=== PATIENT | male | born 1975 | race African-American/Black ===

== ENCOUNTER 2021-04-27 14:28 | Inpatient (IN) ==
[2021-04-27] MEDS ORDERED: SODIUM CHLORIDE 0.9% 1,000 ML IV STA (14:53)
[2021-04-27 15:11] LABS: Basophils % 0.2 % (0.0-0.8); Eosinophils % 0.3 % (0.00-10.9); Hematocrit 53.7 VOL% (42.0-52.0); Hemoglobin 17.6 GM/DL (14.0-18.0); Immature Granulocytes % 0.4 %; Immature Granulocytes Absolute 0.05 #; Lymphocytes # 1.8 10*3/uL (1.4-4.0); Lymphocytes % 14.7 % (21.2-54.2); Mean Corpuscular HGB Conc 32.8 GM/DL (32-36); Mean Corpuscular Volume 90.4 FL (87-102); Monocytes % 5.1 % (1.7-12.7); Neutrophils % 79.3 % (38.7-73.9); Platelet Count 523 T/CUMM (130-400); Red Blood Count 5.94 MC/CUMM (3.8-5.5); Red Cell Distribution Width 13.2 % (9.3-17.3); White Blood Count 12.2 T/CUMM (4-12)
[2021-04-27 15:36] LABS: Alanine Aminotransferase 35 U/L (16-61); Alkaline Phosphatase 156 U/L (45-117); Aspartate Amino Transferase 25 U/L (0-37); Blood Urea Nitrogen 12 MG/DL (7-18); Calcium 10.8 MG/DL (8.5-10.1); Carbon Dioxide 25 MMOL/L (21-32); Estimated Glom Filtration Rate 84 ML/MIN; Glucose 173 MG/DL (74-106); Sodium 136 MMOL/L (136-145); Total Protein 8.8 G/DL (6.4-8.2)
[2021-04-27 15:38] LABS: Potassium 4.8 MMOL/L (3.5-5.1)
[2021-04-27] MEDS ORDERED: HYDROmorphone 1 MG/1 ML SYRINGE IV STA ×2 (17:07→19:09)
[2021-04-27] MEDS ORDERED: ONDANSETRON 4 MG/2 ML VIAL IV ONE (17:07)
[2021-04-27] MEDS ORDERED: PIPERACILLIN/TAZOBACTAM 3,375 MG in SODIUM CHLORIDE 0.9% 100 ML IV STA (21:37)
[2021-04-27] MEDS ORDERED: ERTAPENEM 1,000 MG in SODIUM CHLORIDE 0.9% 100 ML IV ONE (21:53)
[2021-04-27] MEDS ORDERED: LACTATED RINGERS 2,000 ML IV ONE (21:56)
[2021-04-27] MEDS ORDERED: fentaNYL 100 MCG/2 ML VIAL ONE (22:27)
[2021-04-27] MEDS ORDERED: propofoL 200 MG/20 ML VIAL IV ONE (22:27)
[2021-04-27] MEDS ORDERED: LIDOCAINE 2% 5 ML VIAL ONE (22:49)
[2021-04-27] MEDS ORDERED: PHENYLEPHRINE 1 MG/10 ML SYRINGE IV ONE (22:49)
[2021-04-27] MEDS ORDERED: SUCCINYLCHOLINE 200 MG/10 ML VIAL ONE (23:11)
[2021-04-27] MEDS ORDERED: ROCURONIUM 50 MG/5 ML VIAL IV ONE (23:11)
[2021-04-27] MEDS ORDERED: ACETAMINOPHEN INJ 1,000 MG/100 ML VIAL IV ONE (23:11)
[2021-04-27] MEDS ORDERED: SEVOFLURANE 1 UNIT/15 MINUTE INH ONE (23:11)
[2021-04-27] MEDS ORDERED: ONDANSETRON 4 MG/2 ML VIAL ONE (23:12)
[2021-04-27] MEDS ORDERED: GLYCOPYRROLATE 0.4 MG/2 ML VIAL ONE (23:26)
[2021-04-27] MEDS ORDERED: NEOSTIGMINE 10 MG/10 ML VIAL ONE (23:27)
[2021-04-27] MEDS ORDERED: ACETAMINOPHEN 325 MG TABLET PO PRN (23:51)
[2021-04-28] MEDS ORDERED: ONDANSETRON 4 MG/2 ML VIAL IV PRN (00:02)
[2021-04-28] MEDS: HYDROmorphone 1 MG/1 ML SYRINGE IV PRN ×9 (00:03→21:56)
[2021-04-28] MEDS: ONDANSETRON 4 MG/2 ML VIAL IV PRN ×3 (03:35→17:40)
[2021-04-28] MEDS: LACTATED RINGERS 1,000 ML IV SCH ×4 (06:05→21:52)
[2021-04-28] MEDS: PIPERACILLIN/TAZOBACTAM 3,375 MG in SODIUM CHLORIDE 0.9% 100 ML IV SCH ×3 (06:05→23:05)
[2021-04-28 07:57] LABS: Basophils # 0.1 10*3/uL (0.0-0.2); Basophils % 0.5 % (0.0-0.8); Eosinophils % 0.1 % (0.00-10.9); Hematocrit 50.5 VOL% (42.0-52.0); Hemoglobin 16.5 GM/DL (14.0-18.0); Immature Granulocytes % 0.5 %; Immature Granulocytes Absolute 0.05 #; Lymphocytes # 0.4 10*3/uL (1.4-4.0); Lymphocytes % 3.9 % (21.2-54.2); Mean Corpuscular HGB Conc 32.7 GM/DL (32-36); Mean Platelet Volume 9.8 FL (9.6-12.0); Monocytes % 10.1 % (1.7-12.7); Neutrophils % 84.9 % (38.7-73.9); Platelet Count 420 T/CUMM (130-400); Red Blood Count 5.61 MC/CUMM (3.8-5.5); Red Cell Distribution Width 13.4 % (9.3-17.3); White Blood Count 10.9 T/CUMM (4-12)
[2021-04-28 08:17] LABS: Calcium 8.8 MG/DL (8.5-10.1); Osmolality,Calculated 281.7 MOS/KG (273-304)
[2021-04-28 08:24] LABS: Band Neutrophils 9 % (0-10); Hypochromia 1+; Lymphocytes 8 % (20-55); Microcytosis Slight; Segmented Neutrophils 71 % (50-85); Total Cells Counted 100
[2021-04-28] MEDS ORDERED: PANTOPRAZOLE 40 MG VIAL IV ONE (08:42)
[2021-04-28] MEDS ORDERED: PANTOPRAZOLE 40 MG TABLET PO SCH (09:00)
[2021-04-28] MEDS: PANTOPRAZOLE 40 MG VIAL IV SCH (10:50)
[2021-04-28] MEDS ORDERED: LACTATED RINGERS 1,000 ML IV ONE (12:00)
[2021-04-28] MEDS ORDERED: HYDROCORTISONE 1% OINT 28.35 GM TUBE TOP PRN (13:06)
[2021-04-28] MEDS: SIMVASTATIN 20 MG TABLET PO SCH (21:56)
[2021-04-28] MEDS: NORTRIPTYLINE 25 MG CAPSULE PO SCH (21:56)
[2021-04-29] MEDS: HYDROmorphone 1 MG/1 ML SYRINGE IV PRN ×5 (01:33→21:22)
[2021-04-29] MEDS: PIPERACILLIN/TAZOBACTAM 3,375 MG in SODIUM CHLORIDE 0.9% 100 ML IV SCH ×3 (06:26→22:45)
[2021-04-29 08:22] LABS: Basophils % 0.4 % (0.0-0.8); Eosinophils # 0.1 10*3/uL (0.0-0.87); Eosinophils % 1.1 % (0.00-10.9); Hematocrit 49.1 VOL% (42.0-52.0); Hemoglobin 15.4 GM/DL (14.0-18.0); Immature Granulocytes % 0.2 %; Immature Granulocytes Absolute 0.01 #; Lymphocytes # 1.2 10*3/uL (1.4-4.0); Lymphocytes % 22.6 % (21.2-54.2); Mean Corpuscular HGB Conc 31.4 GM/DL (32-36); Mean Corpuscular Volume 93.9 FL (87-102); Mean Platelet Volume 10.5 FL (9.6-12.0); Monocytes % 11.8 % (1.7-12.7); Neutrophils % 63.9 % (38.7-73.9); Red Blood Count 5.23 MC/CUMM (3.8-5.5); Red Cell Distribution Width 13.5 % (9.3-17.3)
[2021-04-29 08:24] LABS: Platelet Count 265 T/CUMM (130-400); White Blood Count 5.3 T/CUMM (4-12)
[2021-04-29 08:40] LABS: Calcium 8.5 MG/DL (8.5-10.1); Osmolality,Calculated 280.7 MOS/KG (273-304); Potassium 4.8 MMOL/L (3.5-5.1)
[2021-04-29] MEDS: CICLOPIROX 8% TOP SCH (08:54)
[2021-04-29 08:57] LABS: Band Neutrophils 7 % (0-10); Eosinophils 2 % (0-10); Hypochromia 1+; Lymphocytes 20 % (20-55); Microcytosis 1+; Segmented Neutrophils 61 % (50-85); Total Cells Counted 100
[2021-04-29] MEDS: PANTOPRAZOLE 40 MG VIAL IV SCH (10:40)
[2021-04-29] MEDS: LOSARTAN 50 MG TABLET PO SCH (10:46)
[2021-04-29] MEDS: amLODIPine 10 MG TABLET PO SCH (10:46)
[2021-04-29] MEDS: hydroCHLOROthiazide 25 MG TABLET PO SCH (10:46)
[2021-04-29] MEDS: LACTATED RINGERS 1,000 ML IV SCH ×2 (13:17→19:59)
[2021-04-29] MEDS: SIMVASTATIN 20 MG TABLET PO SCH (21:21)
[2021-04-29] MEDS: NORTRIPTYLINE 25 MG CAPSULE PO SCH (21:21)
[2021-04-30] MEDS: HYDROmorphone 1 MG/1 ML SYRINGE IV PRN ×6 (01:16→22:30)
[2021-04-30] MEDS: PIPERACILLIN/TAZOBACTAM 3,375 MG in SODIUM CHLORIDE 0.9% 100 ML IV SCH ×3 (06:02→22:29)
[2021-04-30] MEDS: LOSARTAN 50 MG TABLET PO SCH (09:45)
[2021-04-30] MEDS: LACTATED RINGERS 1,000 ML IV SCH ×3 (09:45→22:24)
[2021-04-30] MEDS: amLODIPine 10 MG TABLET PO SCH (09:45)
[2021-04-30] MEDS: PANTOPRAZOLE 40 MG VIAL IV SCH (09:46)
[2021-04-30] MEDS: hydroCHLOROthiazide 25 MG TABLET PO SCH (09:46)
[2021-04-30] MEDS: CICLOPIROX 8% TOP SCH (11:34)
[2021-04-30] MEDS: ENOXAPARIN 40 MG/0.4 ML SYRINGE SUBCUT SCH (15:40)
[2021-04-30] MEDS: NORTRIPTYLINE 25 MG CAPSULE PO SCH (20:50)
[2021-04-30] MEDS: SIMVASTATIN 20 MG TABLET PO SCH (20:50)
[2021-05-01] MEDS: HYDROmorphone 1 MG/1 ML SYRINGE IV PRN ×4 (02:44→21:04)
[2021-05-01] MEDS: LACTATED RINGERS 1,000 ML IV SCH ×3 (04:00→21:12)
[2021-05-01] MEDS: PIPERACILLIN/TAZOBACTAM 3,375 MG in SODIUM CHLORIDE 0.9% 100 ML IV SCH (06:32)
[2021-05-01] MEDS: ENOXAPARIN 40 MG/0.4 ML SYRINGE SUBCUT SCH (09:01)
[2021-05-01] MEDS: amLODIPine 10 MG TABLET PO SCH (09:01)
[2021-05-01] MEDS: hydroCHLOROthiazide 25 MG TABLET PO SCH (09:02)
[2021-05-01] MEDS: PANTOPRAZOLE 40 MG VIAL IV SCH (09:02)
[2021-05-01] MEDS: LOSARTAN 50 MG TABLET PO SCH (09:02)
[2021-05-01 09:19] LABS: Basophils % 0.3 % (0.0-0.8); Eosinophils # 0.2 10*3/uL (0.0-0.87); Eosinophils % 2.7 % (0.00-10.9); Hematocrit 43.8 VOL% (42.0-52.0); Hemoglobin 14.4 GM/DL (14.0-18.0); Immature Granulocytes % 0.3 %; Immature Granulocytes Absolute 0.02 #; Lymphocytes # 1.4 10*3/uL (1.4-4.0); Lymphocytes % 19.3 % (21.2-54.2); Mean Corpuscular HGB Conc 32.9 GM/DL (32-36); Mean Corpuscular Volume 91.4 FL (87-102); Monocytes % 9.6 % (1.7-12.7); Neutrophils % 67.8 % (38.7-73.9); Platelet Count 403 T/CUMM (130-400); Red Blood Count 4.79 MC/CUMM (3.8-5.5); Red Cell Distribution Width 13.2 % (9.3-17.3); White Blood Count 7.1 T/CUMM (4-12)
[2021-05-01 09:39] LABS: Calcium 9.5 MG/DL (8.5-10.1); Osmolality,Calculated 269.2 MOS/KG (273-304)
[2021-05-01] MEDS: CICLOPIROX 8% TOP SCH (10:45)
[2021-05-01] MEDS: NORTRIPTYLINE 25 MG CAPSULE PO SCH (21:03)
[2021-05-01] MEDS: SIMVASTATIN 20 MG TABLET PO SCH (21:04)
[2021-05-02] MEDS: LACTATED RINGERS 1,000 ML IV SCH ×2 (04:10→12:00)
[2021-05-02] MEDS: amLODIPine 10 MG TABLET PO SCH (08:12)
[2021-05-02] MEDS: ENOXAPARIN 40 MG/0.4 ML SYRINGE SUBCUT SCH (08:12)
[2021-05-02] MEDS: LOSARTAN 50 MG TABLET PO SCH (08:13)
[2021-05-02] MEDS: hydroCHLOROthiazide 25 MG TABLET PO SCH (08:13)
[2021-05-02] MEDS: PANTOPRAZOLE 40 MG VIAL IV SCH (08:13)
[2021-05-02] MEDS: HYDROmorphone 1 MG/1 ML SYRINGE IV PRN ×2 (08:14→20:42)
[2021-05-02] MEDS: CICLOPIROX 8% TOP SCH (08:38)
[2021-05-02] MEDS: NORTRIPTYLINE 25 MG CAPSULE PO SCH (20:42)
[2021-05-02] MEDS: SIMVASTATIN 20 MG TABLET PO SCH (20:42)
[2021-05-03] MEDS: HYDROmorphone 1 MG/1 ML SYRINGE IV PRN ×5 (00:38→23:16)
[2021-05-03] MEDS: amLODIPine 10 MG TABLET PO SCH (09:19)
[2021-05-03] MEDS: LOSARTAN 50 MG TABLET PO SCH (09:19)
[2021-05-03] MEDS: PANTOPRAZOLE 40 MG VIAL IV SCH (09:19)
[2021-05-03] MEDS: hydroCHLOROthiazide 25 MG TABLET PO SCH (09:19)
[2021-05-03] MEDS: ENOXAPARIN 40 MG/0.4 ML SYRINGE SUBCUT SCH (09:19)
[2021-05-03] MEDS: CICLOPIROX 8% TOP SCH (11:09)
[2021-05-03] MEDS: LACTATED RINGERS 1,000 ML IV SCH (19:02)
[2021-05-03] MEDS: SIMVASTATIN 20 MG TABLET PO SCH (21:50)
[2021-05-03] MEDS: NORTRIPTYLINE 25 MG CAPSULE PO SCH (21:50)
[2021-05-04] MEDS: HYDROmorphone 1 MG/1 ML SYRINGE IV PRN ×2 (04:26→12:13)
[2021-05-04] MEDS: amLODIPine 10 MG TABLET PO SCH (08:59)
[2021-05-04] MEDS: ENOXAPARIN 40 MG/0.4 ML SYRINGE SUBCUT SCH (08:59)
[2021-05-04] MEDS: hydroCHLOROthiazide 25 MG TABLET PO SCH (08:59)
[2021-05-04] MEDS: LOSARTAN 50 MG TABLET PO SCH (08:59)
[2021-05-04] MEDS: PANTOPRAZOLE 40 MG VIAL IV SCH (09:00)
[2021-05-04] MEDS: CICLOPIROX 8% TOP SCH (09:19)
[2021-05-04] MEDS: SIMVASTATIN 20 MG TABLET PO SCH (21:32)
[2021-05-04] MEDS: NORTRIPTYLINE 25 MG CAPSULE PO SCH (21:33)
[2021-05-05] MEDS: ENOXAPARIN 40 MG/0.4 ML SYRINGE SUBCUT SCH (09:41)
[2021-05-05] MEDS: hydroCHLOROthiazide 25 MG TABLET PO SCH (09:41)
[2021-05-05] MEDS: amLODIPine 10 MG TABLET PO SCH (09:42)
[2021-05-05] MEDS: LOSARTAN 50 MG TABLET PO SCH (09:42)
[2021-05-05] MEDS: PANTOPRAZOLE 40 MG VIAL IV SCH (09:42)
[2021-05-05] MEDS: CICLOPIROX 8% TOP SCH (10:09)
[2021-05-05] MEDS ORDERED: MAGNESIUM HYDROXIDE SUSP 30 ML UDCUP PO ONE (11:43)
[2021-05-05] MEDS: SIMVASTATIN 20 MG TABLET PO SCH (21:17)
[2021-05-05] MEDS: NORTRIPTYLINE 25 MG CAPSULE PO SCH (21:17)
[2021-05-06] MEDS: amLODIPine 10 MG TABLET PO SCH (09:31)
[2021-05-06] MEDS: hydroCHLOROthiazide 25 MG TABLET PO SCH (09:31)
[2021-05-06] MEDS: LOSARTAN 50 MG TABLET PO SCH (09:31)
[2021-05-06] MEDS: CICLOPIROX 8% TOP SCH ×2 (09:32→10:58)
[2021-05-06] MEDS: PANTOPRAZOLE 40 MG VIAL IV SCH (09:32)
[2021-05-06] MEDS: ENOXAPARIN 40 MG/0.4 ML SYRINGE SUBCUT SCH (09:33)
[2021-05-06] MEDS: SIMVASTATIN 20 MG TABLET PO SCH (21:07)
[2021-05-06] MEDS: NORTRIPTYLINE 25 MG CAPSULE PO SCH (21:08)
[2021-05-07] MEDS: PANTOPRAZOLE 40 MG VIAL IV SCH (09:25)
[2021-05-07] MEDS: ENOXAPARIN 40 MG/0.4 ML SYRINGE SUBCUT SCH (09:25)
[2021-05-07] MEDS: LOSARTAN 50 MG TABLET PO SCH (09:25)
[2021-05-07] MEDS: hydroCHLOROthiazide 25 MG TABLET PO SCH (09:25)
[2021-05-07] MEDS: CICLOPIROX 8% TOP SCH (09:26)
[2021-05-07] MEDS: amLODIPine 10 MG TABLET PO SCH (09:29)
[2021-05-07] MEDS ORDERED: MAGNESIUM HYDROXIDE SUSP 30 ML UDCUP PO ONE (12:24)
[2021-05-07 16:27] VITALS: BP 112/64
== END 2021-05-07 16:45 | DRG 330 ==
LOC: N.EDINP 14:28 → N.ED 14:28 → N.3W 22:25
PROVIDERS: ADMIT Student in an Organized Health Care Education/Training Program; ATTEND Student in an Organized Health Care Education/Training Program